=== PATIENT | female | born 1985 | race Caucasian/White ===

== ENCOUNTER 2017-10-25 12:01 | Emergency (ER) | payer BC ==
[2017-10-25 13:07] VITALS: BP 147/84
--- NOTE | 2017-10-25 13:22 | UC ---
Respiratory Complaint HPI - HPI Summary HPI Summary: History of asthma, chest is feeling tighter, sputum is chnging to a thick green patient is concerned she is getting bacterial infection as she is needing to use her neds more frequently - History of Current Complaint Chief Complaint: UCGeneralIllness Stated Complaint: CONGESTION Time Seen by Provider: 10/25/17 13:15 Hx Obtained From: Patient Hx Last Menstrual Period: LAST WEEK ?: No Onset/Duration: Gradual Onset, Lasting Days, Worse Since - getting worse daily Timing: Constant Severity Initially: Mild Severity Currently: Moderate Character: Cough: Productive, Sputum Description: - thick green Aggravating Factors: Nothing Alleviating Factors: Bronchodilator Associated Signs And Symptoms: Positive: URI - Allergies/Home Medications Allergies/Adverse Reactions: Allergies Allergy/AdvReac Type Severity Reaction Status Date / Time Penicillins [PCN] Allergy Intermediate Hives Verified 10/25/17 13:07 Home Medications: Home Medications Albuterol Sulfate [Proventil Hfa] 10/25/17 [History] Budesonide/Formote 160/4.5(NF) [Symbicort 160/4.5 (NF)] 10/25/17 [History] PMH/Surg Hx/FS Hx/Imm Hx Previously Healthy: No Respiratory History: Asthma - Surgical History Surgical History: None - Family History Known Family History: Positive: None - Social History Occupation: Employed Full-time Lives: With Family Alcohol Use: Daily Substance Use Type: None Smoking Status (MU): Former Smoker - Immunization History Most Recent Influenza Vaccination: NOT CURRENT Review of Systems Constitutional: Chills, Fatigue Skin: Negative Eyes: Negative ENT: Sore Throat, Nasal Discharge, Sinus Pain/Tenderness Respiratory: Cough Cardiovascular: Negative Gastrointestinal: Negative Genitourinary: Negative Motor: Negative Neurovascular: Negative Musculoskeletal: Negative Neurological: Negative Psychological: Negative Is Patient Immunocompromised?: No All Other Systems Reviewed And Are Negative: Yes Physical Exam Triage Information Reviewed: Yes Appearance: Well-Appearing, No Pain Distress, Well-Nourished Vital Signs: Initial Vital Signs Temp 97.4 F 10/25/17 13:03 Pulse 83 10/25/17 13:03 Resp 18 10/25/17 13:03 BP 147/84 10/25/17 13:03 Pulse Ox 99 10/25/17 13:03 Vital Signs Reviewed: Yes Eye Exam: Normal Eyes: Positive: Conjunctiva Clear ENT Exam: Normal ENT: Positive: Normal ENT inspection, Hearing grossly normal, Pharynx normal, Nasal congestion, Nasal drainage, TMs normal, Uvula midline. Negative: Tonsillar swelling, Tonsillar exudate, Muffled voice, Hoarse voice, Dental tenderness Dental Exam: Normal Neck exam: Normal Neck: Positive: Supple, Nontender, No Lymphadenopathy Respiratory Exam: Normal Respiratory: Positive: Chest non-tender, Lungs clear, No respiratory distress, No accessory muscle use, Decreased breath sounds Cardiovascular Exam: Normal Cardiovascular: Positive: RRR, No Murmur, Pulses Normal, Brisk Capillary Refill Musculoskeletal Exam: Normal Musculoskeletal: Positive: Strength Intact, ROM Intact, No Edema Neurological Exam: Normal Neurological: Positive: Alert, Muscle Tone Normal Psychological Exam: Normal Psychological: Positive: Normal Response To Family Skin Exam: Normal Skin: Positive: rashes UC Diagnostic Evaluation - Laboratory O2 Sat by Pulse Oximetry: 99 Respiratory Course/Dx - Course Course Of Treatment: Patient feels she does not need prednisone at this time - --Feels that increase MDI ond and NSAIDS will be helpful - Differential Dx/Diagnosis Provider Diagnoses: Bronchitis with Broncho spams Discharge - Discharge Plan Condition: Stable Disposition: HOME Prescriptions: Azithromycin TAB* [Zithromax TAB (Z-KENDRA) 250 mg #6 tabs] 2 tab PO .TODAY, THEN 1 DAILY #1 [email or web address] Patient Education Materials: Azithromycin (By mouth), Acute Bronchitis (ED), Hypertension (ED), Bronchospasm (ED) Referrals: [facility] [place] [facility] [Outside] - 2 Weeks
== END 2017-10-25 13:38 | disposition home or self-care (01) ==
LOC: UCCORT 12:01
DX: J20.9 Acute bronchitis, unspecified (principal); Z88.0 Allergy status to penicillin; J45.909 Unspecified asthma, uncomplicated; Z87.891 Personal history of nicotine dependence
CPT/HCPCS: 99202; G0463

== ENCOUNTER 2018-05-12 12:16 | Emergency (ER) | payer BC ==
[2018-05-12 12:40] VITALS: BP 140/88
[2018-05-12] MEDS ORDERED: Al Hydrox/Mg Hydrox/Simet LIQ* 30 ML UDC PO ONE (12:52)
[2018-05-12] MEDS ORDERED: Lidocaine 2% VISCOUS* 15 ML UDC PO ONE (12:53)
--- NOTE | 2018-05-12 13:00 | UC ---
Throat Pain/Nasal Helder HPI - HPI Summary HPI Summary: sore throat---for a few days feels scratchy and worse at night hurts to swallow - History of Current Complaint Chief Complaint: UCGeneralIllness Stated Complaint: ST Time Seen by Provider: 05/12/18 12:48 Hx Obtained From: Patient Hx Last Menstrual Period: 04/27/18 ?: No Onset/Duration: Sudden Onset Pain Intensity: 4 Pain Scale Used: 0-10 Numeric Cough: None Associated Signs & Symptoms: Positive: Negative - Allergies/Home Medications Allergies/Adverse Reactions: Allergies Allergy/AdvReac Type Severity Reaction Status Date / Time Penicillins Allergy Intermediate Hives Verified 05/12/18 12:41 cefaclor [From [facility]] Allergy Unknown Unknown Verified 05/12/18 12:41 Reaction Details PMH/Surg Hx/FS Hx/Imm Hx Previously Healthy: No Respiratory History: Asthma - mild intermittent - Surgical History Surgical History: None - Family History Known Family History: Positive: None - Social History Occupation: Employed Full-time Lives: With Family Alcohol Use: Daily Substance Use Type: None Smoking Status (MU): Former Smoker - Immunization History Most Recent Influenza Vaccination: NOT CURRENT Review of Systems Constitutional: Negative Skin: Negative Eyes: Negative ENT: Sore Throat Respiratory: Negative Cardiovascular: Negative Gastrointestinal: Negative Genitourinary: Negative Motor: Negative Neurovascular: Negative Musculoskeletal: Negative Neurological: Negative Psychological: Negative Is Patient Immunocompromised?: No All Other Systems Reviewed And Are Negative: Yes Physical Exam Triage Information Reviewed: Yes Appearance: Well-Appearing, No Pain Distress, Well-Nourished Vital Signs: Initial Vital Signs Temp 99.0 F 05/12/18 12:35 Pulse 80 05/12/18 12:35 Resp 18 05/12/18 12:35 BP 140/88 05/12/18 12:35 Pulse Ox 100 05/12/18 12:35 Vital Signs Reviewed: Yes Eye Exam: Normal Eyes: Positive: Conjunctiva Clear ENT Exam: Normal ENT: Positive: Normal ENT inspection, Hearing grossly normal, Pharynx normal, TMs normal, Uvula midline, Other - thyroid WNL. Negative: Nasal congestion, Tonsillar swelling, Tonsillar exudate, Trismus, Muffled voice, Hoarse voice, Dental tenderness, Sinus tenderness Dental Exam: Normal Neck exam: Normal Neck: Positive: Supple, Nontender, No Lymphadenopathy Respiratory Exam: Normal Respiratory: Positive: Chest non-tender, Lungs clear, Normal breath sounds, No respiratory distress, No accessory muscle use Cardiovascular Exam: Normal Cardiovascular: Positive: RRR, No Murmur, Pulses Normal, Brisk Capillary Refill Musculoskeletal Exam: Normal Musculoskeletal: Positive: Strength Intact, ROM Intact, No Edema Neurological Exam: Normal Neurological: Positive: Alert, Muscle Tone Normal Psychological Exam: Normal Skin Exam: Normal Diagnostics - Laboratory Diagnostic Studies Completed/Ordered: RST (-) Re-Evaluation - Re-Evaluation First Eval Change: Unchanged - same "tickle" remains after GI Cocktail Throat Pain/Nasal Course/Dx - Course Assessment/Plan: otc allergy med, cool mist humidifer, increase fluids follow with pcp rpn - Differential Dx/Diagnosis Provider Diagnoses: pharyngitis, enviromental allergy Discharge - Sign-Out/Discharge Documenting (check all that apply): Discharge/Admit/Transfer - Discharge Plan Condition: Stable Disposition: HOME Patient Education Materials: Cetirizine (By mouth), Pharyngitis (ED), Allergic Rhinitis (ED) Referrals: Indy Rivas PA [Primary Care Provider] - If Needed - Billing Disposition and Condition Condition: STABLE Disposition: Home
== END 2018-05-12 13:23 | disposition home or self-care (01) ==
LOC: UCCORT 12:16
DX: Z88.1 Allergy status to other antibiotic agents (principal); T78.49XA Other allergy, initial encounter; X58.XXXA Exposure to other specified factors, initial encounter; Z88.0 Allergy status to penicillin; Z87.891 Personal history of nicotine dependence; J02.9 Acute pharyngitis, unspecified
CPT/HCPCS: 87651; 99212; A9270-GY; G0463

== ENCOUNTER 2018-09-14 10:34 | Emergency (ER) | payer BC ==
[2018-09-14 12:33] VITALS: BP 146/87
--- NOTE | 2018-09-14 12:42 | UC ---
Throat Pain/Nasal Helder HPI - HPI Summary HPI Summary: 33 year old female with history of asthma presents with onset of nasal congestion, nasal discharge, sinus pressure, sore throat, shortness of breath, wheezing, and a productive cough for green sputum. Associated with occasional chills. States needing to use her rescue inhaler 4-5 times a day. Denies fever, chest pain, palpitations, abdominal pain, nausea, vomiting, or diarrhea. - History of Current Complaint Chief Complaint: UCRespiratory Stated Complaint: CONGESTION Time Seen by Provider: 09/14/18 12:33 Hx Obtained From: Patient Hx Last Menstrual Period: 04/27/18 ?: No Onset/Duration: Gradual Onset, Lasting Days - 4 Pain Intensity: 0 Cough: Productive Associated Signs & Symptoms: Positive: Wheezing, Sinus Discomfort, Nasal Discharge - Allergies/Home Medications Allergies/Adverse Reactions: Allergies Allergy/AdvReac Type Severity Reaction Status Date / Time Penicillins Allergy Intermediate Hives Verified 09/14/18 12:27 cefaclor [From [facility]] Allergy Unknown Unknown Verified 09/14/18 12:27 Reaction Details Home Medications: Home Medications Budesonide/Formote 160/4.5(NF) [Symbicort 160/4.5 (NF)] 2 dose INH DAILY [History Confirmed 09/14/18] Cetirizine* [ZyrTEC 10 MG TAB*] 10 mg PO DAILY 09/14/18 [History Confirmed 09/14] PMH/Surg Hx/FS Hx/Imm Hx Respiratory History: Asthma - Surgical History Surgical History: Yes Surgery Procedure, Year, and Place: left eye surgery - Family History Family History: Noncontributory - Social History Occupation: Employed Full-time Lives: With Family Alcohol Use: Weekly Substance Use Type: None Smoking Status (MU): Light Every Day Tobacco Smoker - Immunization History Most Recent Influenza Vaccination: NOT CURRENT Review of Systems Constitutional: Chills Skin: Negative Eyes: Negative ENT: Sore Throat, Nasal Discharge, Sinus Congestion, Sinus Pain/Tenderness Respiratory: Shortness Of Breath, Cough, Other - wheezing Cardiovascular: Negative Gastrointestinal: Negative Is Patient Immunocompromised?: No All Other Systems Reviewed And Are Negative: Yes Physical Exam Triage Information Reviewed: Yes Appearance: No Pain Distress, Well-Nourished Vital Signs: Initial Vital Signs Temp 98.5 F 09/14/18 12:26 Pulse 75 10/17/18 12:26 Resp 15 09/14/18 12:26 BP 146/87 09/14/18 12:26 Pulse Ox 99 09/14/18 12:26 Vital Signs Reviewed: Yes Eyes: Positive: Conjunctiva Clear ENT: Positive: Pharyngeal erythema - Mild with cobblestoning, Nasal congestion, Nasal drainage, Sinus tenderness - bilateral maxillary, Uvula midline. Negative : Tonsillar swelling, Tonsillar exudate Neck: Positive: Supple, Nontender, No Lymphadenopathy Respiratory: Positive: Lungs clear, Normal breath sounds, No respiratory distress Cardiovascular: Positive: RRR, No Murmur Neurological: Positive: Alert Skin Exam: Normal Throat Pain/Nasal Course/Dx - Course Course Of Treatment: 33 year old female with history of asthma reporting 4 day history of URI/sinusitis symptoms. Exam was unremarkable except for maxillary sinus tenderness and mild pharyngeal erythema however with her reports of productive cough and intermittent wheezing will treat with course of doxycycline to cover for secondary bacterial infection. Warning symptoms reviewed with patient. Verbalizes understanding and agrees with POC. - Differential Dx/Diagnosis Provider Diagnoses: Acute maxillary sinusitis, Elevated blood pressure reading Discharge - Sign-Out/Discharge Documenting (check all that apply): Patient Departure All imaging exams completed and their final reports reviewed: No Studies - Discharge Plan Condition: Stable Disposition: HOME Prescriptions: Doxycycline Hyclate 100 mg PO BID #14 tablet Fluticasone NASAL SPRAY 50MCG* [Flonase NASAL SPRAY 50MCG*] 2 spray BOTH NARES DAILY #1 btl Patient Education Materials: Sinusitis (ED) Referrals: Indy Rivas PA [Primary Care Provider] - Additional Instructions: Your history and exam is consistent with an acute sinusitis. This is typically caused by a viral infection however with her history of asthma I am going to treat you with an antibiotic called doxycycline. Take 1 tablet twice a day for 7 days. Be sure to take the entire prescription even if her symptoms are improving. Start fluticasone nasal spray 2 sprays each nostril once daily. Recommend using a saline rinse cannot such as Netti Pot or NeilMed at least twice a day to help thin secretions and promote drainage. Use an [id number] decongestant such as Sudafed according to directions as needed for congestion and sinus pressure. May take acetaminophen (Tylenol) or ibuprofen (Advil, Motrin) according directions needed for aches, pains, or fever. Your blood pressure was elevated in the clinic today. It is recommended that you follow up with your primary care provider within 4 weeks to have this rechecked. You should follow up sooner if your symptoms do not improve within 7 days. Seek immediate medical attention in the emergency room if you develop a fever greater than 100.5 F, have chest pain, shortness of breath, persistent wheezing wheezing despite using your albuterol inhaler, or any worsening of symptoms. - Billing Disposition and Condition Condition: STABLE Disposition: Home - Attestation Statements Provider Attestation: I was available for consult. This patient was seen by the THANH. The patient was not presented to, seen by, or examined by me. -Kermit
== END 2018-09-14 13:04 | disposition home or self-care (01) ==
LOC: UCCORT 10:34
DX: J01.00 Acute maxillary sinusitis, unspecified (principal); R03.0 Elevated blood-pressure reading, without diagnosis of hypertension; J45.909 Unspecified asthma, uncomplicated; F17.210 Nicotine dependence, cigarettes, uncomplicated; Z79.51 Long term (current) use of inhaled steroids
CPT/HCPCS: 99212; G0463